=== PATIENT | female | born 1990 | race Caucasian/White ===

== ENCOUNTER 2018-07-20 16:44 | Emergency (ER) | payer SELFPAY ==
[~2018-07-20] VITALS: Ht 157.5 cm; Wt 69.0 kg
[~2018-07-20 16:44] MED LIST: CIPROFLOXACN500 MG PO; CLEOCIN300 MG PO; KEFLEX500 MG PO; POLYTRIM OU; SPRINTEC 2828 DAY PO; ULTRAM50 MG OR
[2018-07-20] MEDS ORDERED: TORADOL PO (17:47)
[2018-07-20] MEDS ORDERED: ZITHROMAX250 MG PO (17:47)
[2018-07-20 18:37] VITALS: BP 134/76
== END 2018-07-20 18:40 | disposition home or self-care (01) | DRG 153 ==
LOC: ED 16:44
DX: J02.9 Acute pharyngitis, unspecified (principal); M84.48XA Pathological fracture, other site, initial encounter for fracture; F17.210 Nicotine dependence, cigarettes, uncomplicated; H92.09 Otalgia, unspecified ear

== ENCOUNTER 2019-03-22 19:01 | Emergency (ER) | payer SELFPAY ==
[~2019-03-22] VITALS: Ht 157.5 cm; Wt 64.5 kg
[~2019-03-22 19:01] MED LIST changes: +TORADOL PO; +ZITHROMAX250 MG PO
[2019-03-22 20:39] LABS: HEMATOCRIT 37.4 % (37.0-47.0); HEMOGLOBIN 12.4 g/dl (12.0-16.0); MEAN CORPUSCULAR HGB 30.5 pG CALC (26.0-32.0); MEAN CORPUSCULAR HGB CONC 33.2 g/L CALC (32.0-36.0); NEUT# 7.14 thou/uL (2.00-7.15); RED BLOOD COUNT 4.07 mill/uL (4.20-5.60); RED CELL DISTRI WIDTH 13.3 % (11.5-15.5)
[2019-03-22 20:41] LABS: MEAN CELL VOLUME 91.9 fL CALC (80.0-100.0)
[2019-03-22 21:10] LABS: ALBUMIN 4.3 g/dL (3.2-5.0); BUN 5 mg/dL (7-17); BUN/CREATININE RATIO 9 (12-20 (CALC)); CARBON DIOXIDE 22 mmol/l (22-30); CHLORIDE 97 mmol/l (95-108); CREATININE 0.6 mg/dL (0.5-1.0); GFR > 60 ML/MIN (>=60 (CALC)); GFR FOR AFR.AMER. > 60 ML/MIN (>=60 (CALC)); POTASSIUM 3.7 mmol/l (3.5-5.1); TOTAL PROTEIN 7.5 g/dL (6.3-8.2)
[2019-03-22 21:11] LABS: ALKALINE PHOSPHATASE 166 u/l (38-126); ANION GAP 17 (6-22 (CALC)); BILIRUBIN, TOTAL 1.1 mg/dL (0.0-1.4); SGOT/AST 355 u/l (14-36); SODIUM 132 mmol/l (137-146)
[2019-03-22] MEDS ORDERED: TAM75CAP PO (21:44)
[2019-03-22 22:30] VITALS: BP 121/75
== END 2019-03-22 22:45 | disposition home or self-care (01) | DRG 153 ==
LOC: ED 19:01
PROVIDERS: Family Medicine
DX: J11.1 Influenza due to unidentified influenza virus with other respiratory manifestations (principal); F17.210 Nicotine dependence, cigarettes, uncomplicated; Z90.49 Acquired absence of other specified parts of digestive tract

== ENCOUNTER 2022-09-09 14:53 | Emergency (ER) | payer SELFPAY ==
[~2022-09-09] VITALS: Ht 160 cm; Wt 67.8 kg
[2022-09-09] VITALS (8 sets, daily range): BP systolic 101–127; BP diastolic 64–83
[~2022-09-09 14:53] MED LIST changes: +TAM75CAP PO
[2022-09-09 15:47] LABS: URINE BILIRUBIN - DIPSTICK NEGATIVE (NEGATIVE); URINE BLOOD DIPSTICK NEGATIVE (NEGATIVE); URINE COLOR YELLOW; URINE GLUCOSE - DIPSTICK NEGATIVE (NEGATIVE); URINE KETONE NEGATIVE (NEGATIVE); URINE LEUK ESTERASE TRACE (NEGATIVE); URINE PROTEIN - DIPSTICK NEGATIVE (NEG-TRACE); URINE SPECIFIC GRAVITY <=1.005; URINE UROBILINOGEN - DIPSTICK 0.2 E.U./dL (0.2)
[2022-09-09 15:47] LABS: BASO% 1.1 % (0-3); HEMATOCRIT 38.2 % (37.0-47.0); HEMOGLOBIN 12.5 g/dl (12.0-16.0); IMMATURE GRANULOCYTES 0.1 % (0.0-5.0); LYMPH% 33.7 % (15-41); MEAN CELL VOLUME 92.3 fL CALC (80.0-100.0); MEAN CORPUSCULAR HGB 30.2 pG CALC (26.0-32.0); MEAN CORPUSCULAR HGB CONC 32.7 g/dL CAL (32.0-36.0); MONO% 6.8 % (2-13); NEUT# 5.06 thou/uL (2.00-7.15); NEUT% 54.3 % (42-76); RED BLOOD COUNT 4.14 mill/uL (4.20-5.60); RED CELL DISTRI WIDTH 12.1 % (11.5-15.5)
[2022-09-09 15:48] LABS: URINE NITRITE - DIPSTICK NEGATIVE (Negative)
[2022-09-09 15:58] LABS: ALBUMIN 4.6 g/dL (3.2-5.0); ALKALINE PHOSPHATASE 288 u/l (38-126); ANION GAP 13 (6-22 (CALC)); BILIRUBIN, TOTAL 0.5 mg/dL (0.02-1.3); BUN 9 mg/dL (7-17); BUN/CREATININE RATIO 15 (12-20 (CALC)); CARBON DIOXIDE 27 mmol/l (22-30); CHLORIDE 100 mmol/l (95-108); CREATININE 0.6 mg/dL (0.5-1.0); GFR FOR AFR.AMER. > 60 ML/MIN (>=60 (CALC)); GFR OTHER RACES > 60 ML/MIN (>=60 (CALC)); POTASSIUM 3.6 mmol/l (3.5-5.1); SGOT/AST 104 u/l (14-36); SODIUM 136 mmol/l (137-146); TOTAL PROTEIN 7.7 g/dL (6.3-8.2)
[2022-09-09] MEDS ORDERED: NAPROXEN500 MG PO (16:17)
[2022-09-09] MEDS ORDERED: NITROFURANTN100 M2 PO (16:17)
[2022-09-09] MEDS ORDERED: OMEPRAZOLE20 MG PO (16:20)
== END 2022-09-09 16:48 | disposition home or self-care (01) | DRG 392 ==
LOC: ED 14:53
PROVIDERS: Family Medicine
DX: R10.13 Epigastric pain (principal); M54.9 Dorsalgia, unspecified; F17.210 Nicotine dependence, cigarettes, uncomplicated